=== PATIENT | female | born 1970 | race Caucasian/White ===

== ENCOUNTER 2017-08-26 18:33 | Emergency (ER) | payer OTHER, MEDICARE ==
[~2017-08-26] VITALS: Ht 168.9 cm; Wt 83.2 kg
[~2017-08-26 18:33] MED LIST: ACET1TAB12 PO; CITA40TA PO; DIL4T PO; Insulin Pump; LETR2.5T4 PO; LEVO125T2 PO; METF-413 PO; METH10TA2 PO; RANI150C4 PO; [UNRECOGNIZED DRUG - OTHER]
[2017-08-26 18:44] VITALS: BP 122/76; PULSE 120; RESP 18; O2SAT 98
[2017-08-26] MEDS ORDERED: 0.9% Sodium Chloride 1,000 ML IV ONE ×2 (18:51→22:50)
--- NOTE | 2017-08-26 18:51 | ED.REPORT ---
HPI-NVD Date of Service Aug 26, 2017 ED Provider: Payam Flor DO Pt is a 47 year old female with a history of DM, HTN, and metastatic breast cancer who presents to the ED complaining of vomiting post-chemo onset 4 days ago. She c/o associated nausea. Pt reports headache, but she states that it may be secondary to dehydration. She denies abdominal pain and fever. The pt reports that her blood glucose is typically 245, and she is concerned as has been 117 recently. The pt underwent chemotherapy 4 days ago, and she states that she does not typically have vomiting after treatment; this was her 8th treatment. Nursing Notes Stated Complaint: VOMITING Chief Complaint: Female Abdominal Pain Nursing Notes Reviewed: Yes Allergies: Coded Allergies: Contrast Media (Verified Allergy, Severe, Anaphylaxis, 08/26/17) hydrocodone (Verified Allergy, Intermediate, vomiting, 08/26/17) oxycodone (Verified Allergy, Intermediate, severe vomiting, 08/26/17) Blue (Verified Allergy, Mild, throat issues, 08/26/17) TAPE (Verified Adverse Reaction, Intermediate, 08/26/17) Uncoded Allergies: MSG (Allergy, Mild, UPSET STOMACH, 06/24/13) SUGAR SUBSTITUTE (Allergy, Mild, STOMACH UPSET, 06/24/13) Scheduled ([hypertension rx]) Unknown Dose DAILY Citalopram Hydrobromide (Celexa) 40 Mg Tablet 40 MG PO DAILY Letrozole (Letrozole) 2.5 Mg Tablet 2.5 MG PO DAILY Levothyroxine (Synthroid) 125 Mcg Tablet 125 MCG PO DAILY Metformin ER (Fortamet) 1,000 Mg Tab.er.24 2,000 MG PO DAILYWD Methylphenidate (Ritalin) 10 Mg Tablet 15 MG PO BID Ranitidine (Ranitidine) 150 Mg Capsule 150 MG PO DAILY Scheduled PRN Acetaminophen/Codeine 300-30mg (Tylenol/Codeine #3) 1 Each Tablet 1-2 TABLET PO Q4H PRN PRN Pain Hydromorphone (Dilaudid) 4 Mg Tablet 4 MG PO Q4H PRN PRN Pain Miscellaneous Medications ([Insulin Pump]) General Time Seen by MD: 18:50 Chief Complaint Vomiting Hx Obtained From: Patient Arrived By: Walk-in Onset Occurred: 4 days ago Symptom Duration: Since onset Severity: Current: No pain currently Severity: Maximum: No pain Recent Healthcare: Recent doctor visit Similar Sx Previous: No Past Medical History Past Medical History Metastatic breast cancer Anxiety Reports: Diabetes mellitus, GERD, Hypertension Reports: Depression Past Surgical History Right partial mastectomy Right arm s/p trauma TVH/BSO Reports: Cholecystectomy Smoking History Never Smoker Social History Alcohol Use: Denies alcohol use Drug Use: Denies drug use Ambulatory Status Independent Review of Systems + low blood glucose level Constitutional: Denies: Fever GI: Reports: Nausea, Vomiting, Denies: Abdominal pain Neurologic: Reports: Headache (secondary to dehydration per pt) Complete sys rev & neg: except as marked. Physical Exam Initial Vital Signs Vital Signs (First) Date Time Temp Pulse Resp B/P Pulse Ox O2 Delivery O2 Flow Rate FiO2 08/26/17 18:44 37.0 120 18 122/76 98 Room Air Initial VS: Reviewed Head / Eyes: Atraumatic, Normocephalic Neck: Supple, Full range of motion Respiratory: Breath sounds normal, Clear to auscultation, No respiratory distress Extremities: Vascular intact, Neuro intact Skin: Warm, Dry, No cyanosis Neurologic: Alert, Oriented, Nonfocal Psychiatric: Mood/affect normal, Behavior normal General/Constitutional: Awake, Alert Abdomen: Atraumatic, Soft, Non-tender Mouth: Positive: Mucous membranes dry Cardiovascular: Regular rhythm, Heart sounds NL Heart Rate / Rhythm: Positive: Tachycardia Interpretation & Diagnostics Lab Results Interpretation Result Diagram: 08/26/17192408/26/171924 Test 08/26/17 19:25 08/26/17 21:00 White Blood Count 4.1th/mm3 (3.8-10.1) Red Blood Count 4.03mil/mm3 (3.90-5.20) Hemoglobin 12.6g/dL (12.0-15.6) Hematocrit 36.6% (35.0-46.0) Mean Corpuscular Volume 90.8fL (81-100) Mean Corpuscular Hemoglobin 31.3pg (27.0-35.0) Mean Corpuscular Hemoglobin Concent 34.4% (32.0-37.0) Red Cell Distribution Width 14.0% (12.3-15.4) Platelet Count 213bil/L (150-400) Neutrophils (%) (Auto) 71.6% (40-74) Lymphocytes (%) (Auto) 24.8% (14-46) Monocytes (%) (Auto) 2.9% (4-12) Eosinophils (%) (Auto) 0.5% (0-5) Basophils (%) (Auto) 0.2% (0-3) Sodium Level 139mEq/L (134-144) Potassium Level 3.1mEq/L (3.5-5.2) Chloride Level 98mEq/L (97-108) Carbon Dioxide Level 27mmol/L (18-29) Blood Urea Nitrogen 9mg/dL (6-24) Creatinine 0.57mg/dL (0.57-1.00) Estimat Glomerular Filtration Rate 162mL/min (>59) Glucose Level 109mg/dL (60-99) Lactic Acid Level 1.1mmol/L (0.4-2.0) Calcium Level 8.5mg/dL (8.5-10.1) Magnesium Level 1.5mg/dL (1.6-2.6) Total Bilirubin 0.7mg/dL (0.0-1.2) Aspartate Amino Transf (AST/SGOT) 38U/L (0-50) Alanine Aminotransferase (ALT/SGPT) 24U/L (0-32) Alkaline Phosphatase 71U/L (25-150) Total Protein 7.6g/dL (6.4-8.4) Albumin 4.3g/dL (3.4-5.0) Lipase 14U/L (13-60) Urine Color Yellow (YELLOW) Urine Appearance Clear (CLEAR,HAZY) Urine pH 6.5 (5.0-8.0) Urine Specific Hoskins 1.015 (1.003-1.035) Urine Protein 30mg/dL (NEG,TRACE) Urine Glucose (UA) 100mg/dL (NEGATIVE) Urine Ketones 15mg/dL (NEGATIVE) Urine Occult Blood Negative (NEGATIVE) Urine Nitrite Negative (NEGATIVE) Urine Bilirubin Negative (NEGATIVE) Urine Urobilinogen 4.0mg/dL (NORMAL) Urine Leukocyte Esterase Negative (NEGATIVE) Urine RBC 0-2/hpf (0-2) Urine WBC 0-5/hpf (0-5) Urine Epithelial Cells Moderate/hpf (NONE-MOD) Urine Crystals None seen (NONE SEEN) Urine Bacteria Few/hpf (NONE-FEW) Urine Hyaline Casts None/lpf (NONE) Urine Granular Casts None seen (NONE SEEN) Urine Waxy Casts None seen (NONE SEEN) Urine Red Blood Cell Casts None seen (NONE SEEN) Urine White Blood Cell Casts None seen (NONE SEEN) Urine Mucus None seen (None Seen) Urine Trichomonas None seen (NONE SEEN) Urine Yeast None (NONE SEEN) Urinalysis Comment None Urine Culture Reflexed Not indicated ECG Interpretation ECG Interpretation: Sinus tachycardia with a rate of 102 LAD Time: 19:07 Interpreted by: ED physician Re-Eval/Medical Decision Source of Hx: Old records Re-Evaluation/Progress #1: Time of Eval: 19:25 Re-Evaluation/Progress Note: Informed pt of tachycardia on ECG. Informed pt of plan for labs, fluids, and treatment with zofran. Pt understands and agrees with plan. All questions addressed. Re-Evaluation/Progress #2: Time of Eval: 22:45 Re-Evaluation/Progress Note: Pt rechecked. She is feeling better and looking better. Informed pt of lab results. Pt reports nausea relief after zofran. She states she has only urinated 1x, and I informed her that she is likely dehydrated with plan for continued fluids. Infromed pt of pending discharge after she has received her 2nd L of fluids. Pt understands and agrees with plan for discharge. F/U instructions and RTER warnings given. All questions addressed. Counseled Regarding: Diagnosis, Lab results, Need for follow-up, When/why to return to ED Discharge & Departure Impression: Primary Impression: Chemotherapy induced nausea and vomiting Disposition: Home Discharge Condition All VS Reviewed: Yes Condition: Stable Patient Instructions: Chemo Induced Nausea and Vomiting (ED) Additional Instructions: Use the Zofran as prescribed. Clear liquid diet for the next 12 hours. Slowly graduate your diet. Call your primary care provider for a follow up appointment next week. Return to the emergency department for any new or concerning symptoms. Referrals: Rosangela Mcdonald (PCP) Marissa Attestation Portions of this note were transcribed by Radha Varghese. I, Dr. Flor personally performed the history, physical exam and medical decision-making; I reviewed and confirmed the accuracy of the information in the transcribed note. Signed by : Marissa Ac, 08/26/17. copies to: Rosangela Mcdonald Todd P DO Aug 26, 2017 18:51 Radha Clay Aug 26, 2017 19:14
[2017-08-26] MEDS: Ondansetron 2 mg/mL 2 mL Inj IVPUSH PRN ×2 (19:35→20:24)
[2017-08-26 19:37] LABS: BASOPHILS % (AUTO) 0.2 % (0-3); EOSINOPHILS % (AUTO) 0.5 % (0-5); MONOCYTES % (AUTO) 2.9 % (4-12); Mean Corpuscular Hemoglobin 31.3 pg (27.0-35.0); Mean Corpuscular Volume 90.8 fL (81-100); NEUTROPHILS % (AUTO) 71.6 % (40-74); Platelet Count 213 bil/L (150-400)
[2017-08-26 20:13] LABS: Magnesium 1.5 mg/dL (1.6-2.6)
[2017-08-26 21:06] VITALS: PULSE 90; O2SAT 97
[2017-08-26 21:21] LABS: APPEARANCE,URINE CLEAR (CLEAR,HAZY); COLOR,URINE YELLOW (YELLOW); OCCULT BLOOD,URINE NEGATIVE (NEGATIVE); PH,URINE 6.5 (5.0-8.0)
[2017-08-26 22:59] VITALS: BP 118/72; PULSE 88; O2SAT 98
[2017-08-27] MEDS ORDERED: HepLOK Flush 100 unit/mL 5 mL Inj ONE (00:21)
[2017-08-27 00:31] VITALS: BP 125/87; PULSE 98; RESP 16; O2SAT 99
== END 2017-08-27 00:32 | disposition home or self-care (01) ==
LOC: SED 18:33
DX: R11.2 Nausea with vomiting, unspecified (principal); R51 Headache; T45.1X5A Adverse effect of antineoplastic and immunosuppressive drugs, initial encounter; Y93.89 Activity, other specified; Y92.89 Other specified places as the place of occurrence of the external cause; Y99.8 Other external cause status; E86.0 Dehydration; I10 Essential (primary) hypertension; K21.9 Gastro-esophageal reflux disease without esophagitis; E11.65 Type 2 diabetes mellitus with hyperglycemia; F41.8 Other specified anxiety disorders; Z85.3 Personal history of malignant neoplasm of breast; Z87.828 Personal history of other (healed) physical injury and trauma; Z90.49 Acquired absence of other specified parts of digestive tract; Z90.11 Acquired absence of right breast and nipple; Z98.890 Other specified postprocedural states; Z79.84 Long term (current) use of oral hypoglycemic drugs; Z88.5 Allergy status to narcotic agent; Z91.041 Radiographic dye allergy status; Z91.018 Allergy to other foods; Z91.048 Other nonmedicinal substance allergy status
CPT/HCPCS: 36415; 80053; 81000; 81025; 82948; 83605; 83690; 83735; 85025; 93005; 96361; 96374; 96376; 99285; J2405; J7030